=== PATIENT | male | born 1985 | race Caucasian/White ===

== ENCOUNTER 2024-02-17 16:48 | Emergency (ER) | payer SELFPAY ==
[2024-02-17 17:05] VITALS: BP 127/91; PULSE 94
[2024-02-17] MEDS: Ciprofloxacin 0.3% Ophth Soln 5 ML Bottle EYERT SCH (17:21)
== END 2024-02-17 17:37 | disposition home or self-care (01) ==
LOC: CC.ED 16:48
DX: H10.9 Unspecified conjunctivitis (principal)
CPT/HCPCS: 99283; A9270-GY